=== PATIENT | female | born 1940 | race African-American/Black ===

== ENCOUNTER 2022-01-15 03:14 | Inpatient (IN) | payer MEDICARE, MEDICAID ==
[~2022-01-15] VITALS: Ht 170.2 cm; Wt 95.7 kg
[~2022-01-15 03:14] MED LIST: ACET-3161 GT; ACET650S25 PO; AMLO10TA80 PO; APIX5TAB MT; ATOR-2 PO; BISA10SU66 RC; CELE200C PO; CLON0.1T14 PO; DOCU-150 PO; DUONEB3 ML INH; FAMO-135 PO; GABA-532 MT; LAM25 PO; LEVE1000 PO; MAGN800O PO; METO-539 PO; MULT-1146 PO; TIOT18CA3 INH; TRAV5DRO4 OP
[2022-01-15] MEDS ORDERED: SODIUM CHLORIDE 0.9% 1,000 ML IV ONE (03:30)
[2022-01-15 04:04] LABS: BASOPHILS % 0.5 % (0.0-2.0); EOSINOPHILS % 0.2 % (0.0-5.0); HEMATOCRIT. 33.7 % (36.0-48.0); HEMOGLOBIN. 11.4 g/dL (12.0-16.0); LYMPHOCYTES % 20.3 % (20.0-50.0); MEAN CORPUSCULAR HEMOGLOBIN 30.2 pg (28.0-32.0); MEAN CORPUSCULAR VOLUME 89.2 fL (81.0-99.0); MEAN PLATELET VOLUME 7.8 fl (7.4-10.4); MONOCYTES % 7.6 % (2.0-8.0); NEUTROPHILS % 71.4 % (40.0-76.0); PLATELET 260 x1000/uL (130-400); RED BLOOD CELL COUNT 3.78 mill/uL (4.2-5.4); RED CELL DISTRIBUTION WIDTH 13.8 % (11.6-14.6)
[2022-01-15 04:10] LABS: CHLORIDE 108 mEq/L (98-107)
[2022-01-15 04:26] LABS: ETHANOL BLOOD < 10 mg/dL
[2022-01-15 09:40] VITALS: BP 97/67
[2022-01-15] MEDS ORDERED: ONDANSETRON HCL 4MG/2ML INJ IV PRN (10:00)
[2022-01-15] MEDS ORDERED: MAGNESIUM/ALUMINUM HYDROXIDE/SIMETHICONE 30ML UDC PO PRN (10:00)
[2022-01-15] MEDS ORDERED: CLONIDINE 0.1MG TABLET PO PRN (10:00)
[2022-01-15] MEDS ORDERED: DOCUSATE SODIUM 100MG CAPSULE PO PRN (10:00)
[2022-01-15] MEDS ORDERED: GUAIFENESIN 200MG/10ML SUGAR FREE UDC PO PRN (10:00)
[2022-01-15] MEDS ORDERED: IPRATROPIUM/ALBUTEROL 0.5-3(2.5)MG/3ML NEB HHN PRN (10:00)
[2022-01-15] MEDS ORDERED: LORAZEPAM 2MG/ML CPJ IV PRN (10:00)
[2022-01-15] MEDS ORDERED: DIPHENHYDRAMINE 50MG/ML VIAL IV PRN (10:00)
[2022-01-15 10:20] VITALS: BP 97/67
[2022-01-15 12:00] VITALS: BP 98/64
[2022-01-15] MEDS: ENOXAPARIN 40MG/0.4ML SYR SUBCUT SCH (13:45)
[2022-01-15] MEDS: SODIUM CHLORIDE 0.9% INJ 3ML FLUSH IVF SCH ×2 (13:50→21:22)
[2022-01-15 16:00] VITALS: BP 131/74
[2022-01-15] MEDS ORDERED: NALOXONE HCL 0.4MG/ML VIAL IV PRN (17:00)
[2022-01-15] MEDS: DEXT 5%/0.45% NACL 500ML 1,000 ML IV SCH (18:59)
[2022-01-15 20:00] VITALS: BP 94/68
[2022-01-16] VITALS: BP 107/52
[2022-01-16 04:00] VITALS: BP 109/71
[2022-01-16] MEDS: SODIUM CHLORIDE 0.9% INJ 3ML FLUSH IVF SCH ×3 (05:39→22:00)
[2022-01-16 07:22] LABS: BASOPHILS % 0.5 % (0.0-2.0); EOSINOPHILS % 4.7 % (0.0-5.0); HEMATOCRIT. 32.2 % (36.0-48.0); HEMOGLOBIN. 10.9 g/dL (12.0-16.0); LYMPHOCYTES % 23.9 % (20.0-50.0); MEAN CORPUSCULAR HEMOGLOBIN 29.7 pg (28.0-32.0); MEAN CORPUSCULAR VOLUME 88.1 fL (81.0-99.0); MEAN PLATELET VOLUME 8.3 fl (7.4-10.4); MONOCYTES % 4.6 % (2.0-8.0); NEUTROPHILS % 66.3 % (40.0-76.0); PLATELET 272 x1000/uL (130-400); RED BLOOD CELL COUNT 3.66 mill/uL (4.2-5.4)
[2022-01-16 07:40] LABS: CHLORIDE 112 mEq/L (98-107)
[2022-01-16 08:00] VITALS: BP 109/44
[2022-01-16] MEDS: DEXT 5%/0.45% NACL 500ML 1,000 ML IV SCH ×2 (08:05→20:51)
[2022-01-16] MEDS ORDERED: POTASSIUM CHLORIDE 20MEQ TABLET SR PO NR (08:45)
[2022-01-16] MEDS: ENOXAPARIN 40MG/0.4ML SYR SUBCUT SCH (09:40)
[2022-01-16 09:48] LABS: T4 FREE 1.63 ng/dL (0.76-1.46)
[2022-01-16 12:00] VITALS: BP 111/69
[2022-01-16] MEDS ORDERED: DIGOXIN 500MCG/2ML AMP IV NR (15:00)
[2022-01-16 16:00] VITALS: BP 108/50
[2022-01-16 20:00] VITALS: BP 100/71
[2022-01-17] VITALS: BP 137/77
[2022-01-17 01:37] LABS: CREATINE KINASE 36 IU/L (26-192); CREATINE KINASE MB FRACTION < 1.0 ng/mL (0.5-3.6)
[2022-01-17 04:00] VITALS: BP 137/77
[2022-01-17] MEDS: SODIUM CHLORIDE 0.9% INJ 3ML FLUSH IVF SCH ×3 (05:55→21:45)
[2022-01-17 08:00] VITALS: BP 143/89
[2022-01-17 08:37] LABS: CREATINE KINASE MB FRACTION 1.1 ng/mL (0.5-3.6)
[2022-01-17] MEDS: HYDROCODONE/ACETAMINOPHEN 5/325MG TABLET PO PRN ×2 (11:18→23:48)
[2022-01-17 12:00] VITALS: BP 120/71
[2022-01-17] MEDS: ACETAMINOPHEN 325MG TABLET PO PRN (12:04)
[2022-01-17] MEDS ORDERED: DIGOXIN 500MCG/2ML AMP IV NR (13:00)
[2022-01-17] MEDS: APIXABAN 5 MG TABLET PO SCH (17:19)
[2022-01-17 20:00] VITALS: BP 141/87
[2022-01-17] MEDS: AMIODARONE HCL 200 MG TABLET PO SCH (21:44)
[2022-01-17] MEDS: METOPROLOL TARTRATE 25MG TABLET PO SCH (21:44)
[2022-01-18] VITALS: BP 160/93
[2022-01-18 04:00] VITALS: BP 125/65
[2022-01-18] MEDS: SODIUM CHLORIDE 0.9% INJ 3ML FLUSH IVF SCH ×3 (05:47→21:50)
[2022-01-18 08:00] VITALS: BP 136/78
[2022-01-18] MEDS: APIXABAN 5 MG TABLET PO SCH ×2 (09:13→17:27)
[2022-01-18] MEDS: AMIODARONE HCL 200 MG TABLET PO SCH ×2 (09:15→21:49)
[2022-01-18] MEDS: METOPROLOL TARTRATE 25MG TABLET PO SCH ×2 (09:15→21:50)
[2022-01-18 12:00] VITALS: BP 94/56
[2022-01-18] MEDS: ACETAMINOPHEN 325MG TABLET PO PRN ×2 (12:15→21:50)
[2022-01-18 16:00] VITALS: BP 148/78
[2022-01-18 20:00] VITALS: BP 139/59
[2022-01-19] VITALS: BP 153/73
[2022-01-19 04:00] VITALS: BP 155/86
[2022-01-19] MEDS: SODIUM CHLORIDE 0.9% INJ 3ML FLUSH IVF SCH (05:44)
[2022-01-19] MEDS: ACETAMINOPHEN 325MG TABLET PO PRN (05:44)
[2022-01-19 08:00] VITALS: BP 155/84
[2022-01-19] MEDS: AMIODARONE HCL 200 MG TABLET PO SCH ×2 (10:03→20:40)
[2022-01-19] MEDS: APIXABAN 5 MG TABLET PO SCH ×2 (10:03→17:33)
[2022-01-19] MEDS: METOPROLOL TARTRATE 25MG TABLET PO SCH ×2 (10:03→20:40)
[2022-01-19 12:00] VITALS: BP 130/77
[2022-01-19 14:46] LABS: CHLORIDE 102 mEq/L (98-107)
[2022-01-19 16:00] VITALS: BP 162/93
[2022-01-19 20:00] VITALS: BP 139/76
[2022-01-20] VITALS (8 sets, daily range): BP systolic 111–162; BP diastolic 60–91
[2022-01-20] MEDS: HYDRALAZINE 20MG/ML VIAL IV PRN (04:44)
[2022-01-20] MEDS: SODIUM CHLORIDE 0.9% INJ 3ML FLUSH IVF SCH ×3 (06:21→21:12)
[2022-01-20] MEDS: AMIODARONE HCL 200 MG TABLET PO SCH ×2 (09:39→21:00)
[2022-01-20] MEDS: METOPROLOL TARTRATE 25MG TABLET PO SCH ×2 (09:39→21:00)
[2022-01-20] MEDS: APIXABAN 5 MG TABLET PO SCH ×2 (09:39→17:50)
[2022-01-20] MEDS: HYDROCHLOROTHIAZIDE 25MG TABLET PO SCH (09:40)
[2022-01-20] MEDS ORDERED: LEVETIRACETAM 500 MG in SODIUM CHLORIDE 0.9% 100 ML IV SCH (12:30)
[2022-01-20] MEDS: LORAZEPAM 2MG/ML CPJ IV PRN (12:57)
[2022-01-20] MEDS: LEVETIRACETAM 500MG PREMIX 100 ML IV SCH ×2 (15:27→21:10)
[2022-01-21] VITALS (9 sets, daily range): BP systolic 101–147; BP diastolic 31–73
[2022-01-21] MEDS: SODIUM CHLORIDE 0.9% INJ 3ML FLUSH IVF SCH ×3 (05:07→21:09)
[2022-01-21] MEDS: LEVETIRACETAM 500MG PREMIX 100 ML IV SCH ×2 (08:45→21:09)
[2022-01-21] MEDS: METOPROLOL TARTRATE 25MG TABLET PO SCH ×3 (08:48→21:00)
[2022-01-21] MEDS: APIXABAN 5 MG TABLET PO SCH ×3 (08:48→17:00)
[2022-01-21] MEDS: AMIODARONE HCL 200 MG TABLET PO SCH ×3 (08:48→21:00)
[2022-01-21] MEDS: HYDROCHLOROTHIAZIDE 25MG TABLET PO SCH ×2 (08:49→08:59)
[2022-01-21] MEDS: HYDRALAZINE 20MG/ML VIAL IV PRN (19:07)
[2022-01-22] VITALS (12 sets, daily range): BP systolic 95–161; BP diastolic 35–97
[2022-01-22] MEDS: SODIUM CHLORIDE 0.9% INJ 3ML FLUSH IVF SCH ×3 (05:27→21:32)
[2022-01-22] MEDS: AMIODARONE HCL 200 MG TABLET PO SCH ×2 (09:00→21:31)
[2022-01-22] MEDS: METOPROLOL TARTRATE 25MG TABLET PO SCH ×2 (09:00→21:31)
[2022-01-22] MEDS: HYDROCHLOROTHIAZIDE 25MG TABLET PO SCH (09:00)
[2022-01-22] MEDS: APIXABAN 5 MG TABLET PO SCH ×2 (09:00→17:00)
[2022-01-22] MEDS: LEVETIRACETAM 500MG PREMIX 100 ML IV SCH ×2 (09:27→21:30)
[2022-01-22 15:46] LABS: BASOPHILS % 0.1 % (0.0-2.0); HEMATOCRIT. 36.8 % (36.0-48.0); HEMOGLOBIN. 12.4 g/dL (12.0-16.0); MEAN CORPUSCULAR HEMOGLOBIN 29.4 pg (28.0-32.0); MEAN CORPUSCULAR VOLUME 87.2 fL (81.0-99.0); MEAN PLATELET VOLUME 7.1 fl (7.4-10.4); MONOCYTES % 14.8 % (2.0-8.0); NEUTROPHILS % 69.1 % (40.0-76.0); PLATELET 346 x1000/uL (130-400); RED BLOOD CELL COUNT 4.22 mill/uL (4.2-5.4); RED CELL DISTRIBUTION WIDTH 13.5 % (11.6-14.6)
[2022-01-22] MEDS: LORAZEPAM 2MG/ML CPJ IV PRN (19:47)
[2022-01-23] VITALS (12 sets, daily range): BP systolic 95–132; BP diastolic 48–98
[2022-01-23] MEDS: SODIUM CHLORIDE 0.9% INJ 3ML FLUSH IVF SCH ×3 (06:34→21:01)
[2022-01-23] MEDS: APIXABAN 5 MG TABLET PO SCH ×2 (09:00→17:36)
[2022-01-23] MEDS: LEVETIRACETAM 500MG PREMIX 100 ML IV SCH (09:12)
[2022-01-23] MEDS: LEVETIRACETAM 500MG/5ML CUP PO SCH ×2 (09:15→20:58)
[2022-01-23] MEDS: AMIODARONE HCL 200 MG TABLET PO SCH ×2 (09:17→20:58)
[2022-01-23] MEDS: METOPROLOL TARTRATE 25MG TABLET PO SCH ×2 (09:18→20:58)
[2022-01-23] MEDS: HYDROCHLOROTHIAZIDE 25MG TABLET PO SCH (09:18)
[2022-01-24] VITALS (12 sets, daily range): BP systolic 88–138; BP diastolic 46–73
[2022-01-24] MEDS ORDERED: SODIUM CHLORIDE 0.9% 500 ML IV ONE (09:45)
[2022-01-24] MEDS: APIXABAN 5 MG TABLET PO SCH ×2 (10:38→18:25)
[2022-01-24] MEDS: LEVETIRACETAM 500MG/5ML CUP PO SCH ×2 (10:38→21:37)
[2022-01-24] MEDS: AMIODARONE HCL 200 MG TABLET PO SCH ×2 (10:38→21:41)
[2022-01-24] MEDS: IPRATROPIUM/ALBUTEROL 0.5-3(2.5)MG/3ML NEB HHN SCH ×2 (17:01→21:35)
[2022-01-24] MEDS: ACETYLCYSTEINE 100MG/ML 10% VIAL 4ML INH SCH (17:01)
[2022-01-24] MEDS: SODIUM CHLORIDE 0.9% INJ 3ML FLUSH IVF SCH ×2 (18:25→21:36)
[2022-01-25] VITALS (12 sets, daily range): BP systolic 86–114; BP diastolic 35–79
[2022-01-25] MEDS: ACETYLCYSTEINE 100MG/ML 10% VIAL 4ML INH SCH ×2 (00:57→13:00)
[2022-01-25] MEDS: IPRATROPIUM/ALBUTEROL 0.5-3(2.5)MG/3ML NEB HHN SCH ×6 (00:57→20:00)
[2022-01-25 06:30] LABS: INR 1.2; PROTHROMBIN TIME 12.4 sec (9.6-11.0)
[2022-01-25] MEDS: SODIUM CHLORIDE 0.9% INJ 3ML FLUSH IVF SCH ×3 (06:32→22:52)
[2022-01-25 06:46] LABS: EOSINOPHILS % 0.5 % (0.0-5.0); HEMATOCRIT. 37.6 % (36.0-48.0); HEMOGLOBIN. 12.6 g/dL (12.0-16.0); LYMPHOCYTES % 15.3 % (20.0-50.0); MEAN CORPUSCULAR HEMOGLOBIN 29.3 pg (28.0-32.0); MEAN CORPUSCULAR VOLUME 87.5 fL (81.0-99.0); MEAN PLATELET VOLUME 7.5 fl (7.4-10.4); MONOCYTES % 7.2 % (2.0-8.0); PLATELET 306 x1000/uL (130-400); RED BLOOD CELL COUNT 4.29 mill/uL (4.2-5.4); RED CELL DISTRIBUTION WIDTH 13.8 % (11.6-14.6)
[2022-01-25 07:44] LABS: CHLORIDE 104 mEq/L (98-107)
[2022-01-25] MEDS: AMIODARONE HCL 200 MG TABLET PO SCH ×2 (08:04→20:28)
[2022-01-25] MEDS: LEVETIRACETAM 500MG/5ML CUP PO SCH ×2 (08:04→20:27)
[2022-01-25] MEDS: APIXABAN 5 MG TABLET PO SCH (08:04)
[2022-01-25] MEDS ORDERED: POTASSIUM CHLORIDE 20MEQ/PACKET PO NR ×2 (10:00→17:00)
[2022-01-25 14:11] LABS: BG BASE EXCESS 11.8 mmol/L (-2.0-2.0); BG CARBOXYHEMOGLOBIN 0.3 % (0.5-1.5); BG DEOXYHEMOGLOBIN 2.3 % (0.0-5.0); BG FRACTION INSPIRED OXYGEN 60; BG HCO3 ACT 35.5 mmol/L (22.0-26.0); BG METHEMOGLOBIN 0.3 % (0.0-1.5); BG OXYGEN SATURATION 97.7 % (92.0-98.5); BG OXYHEMOGLOBIN 97.1 % (94.0-97.0); BG PCO2 42.6 mmHg (35.0-45.0); BG PH 7.539 (7.350-7.450); BG PO2 100.8 mmHg (75.0-100.0); BG SAMPLE SITE LEFT RADIAL; BG VENT MODE MASK - SIMPLE
[2022-01-26] VITALS (15 sets, daily range): BP systolic 81–128; BP diastolic 35–70
[2022-01-26] MEDS: IPRATROPIUM/ALBUTEROL 0.5-3(2.5)MG/3ML NEB HHN SCH ×6 (00:29→21:19)
[2022-01-26] MEDS: ACETYLCYSTEINE 100MG/ML 10% VIAL 4ML INH SCH ×4 (00:29→16:24)
[2022-01-26 05:24] LABS: HEMATOCRIT. 33.7 % (36.0-48.0); HEMOGLOBIN. 11.2 g/dL (12.0-16.0); MEAN CORPUSCULAR VOLUME 87.3 fL (81.0-99.0); PLATELET 348 x1000/uL (130-400); RED BLOOD CELL COUNT 3.86 mill/uL (4.2-5.4); RED CELL DISTRIBUTION WIDTH 14.3 % (11.6-14.6)
[2022-01-26] MEDS: SODIUM CHLORIDE 0.9% INJ 3ML FLUSH IVF SCH ×3 (05:42→21:35)
[2022-01-26 06:26] LABS: CHLORIDE 111 mEq/L (98-107)
[2022-01-26] MEDS: AMIODARONE HCL 200 MG TABLET PO SCH ×2 (08:19→21:34)
[2022-01-26] MEDS: SODIUM CHLORIDE 0.9% 1,000 ML IV SCH ×2 (08:31→21:35)
[2022-01-26] MEDS: LEVETIRACETAM 500MG/5ML CUP PO SCH ×2 (08:31→21:34)
[2022-01-26] MEDS: LEVOFLOXACIN 500MG TABLET PO SCH (08:31)
[2022-01-26] MEDS ORDERED: POTASSIUM CHLORIDE 20MEQ TABLET SR PO NR (09:00)
[2022-01-26 09:14] LABS: PLATELET ESTIMATE NORMAL
[2022-01-26] MEDS: METRONIDAZOLE 500MG TABLET PO SCH ×2 (14:13→21:41)
[2022-01-26 18:38] LABS: BG BASE EXCESS 9.3 mmol/L (-2.0-2.0); BG CARBOXYHEMOGLOBIN 0.3 % (0.5-1.5); BG DEOXYHEMOGLOBIN 1.3 % (0.0-5.0); BG FRACTION INSPIRED OXYGEN 50; BG HCO3 ACT 33.3 mmol/L (22.0-26.0); BG METHEMOGLOBIN 0.3 % (0.0-1.5); BG OXYGEN SATURATION 98.7 % (92.0-98.5); BG OXYHEMOGLOBIN 98.1 % (94.0-97.0); BG PH 7.507 (7.350-7.450); BG SAMPLE SITE LEFT RADIAL; BG TOTAL HEMOGLOBIN 11.2 g/dL (12.0-18.0); BG VENT MODE MASK - VENTI
[2022-01-27] VITALS (12 sets, daily range): BP systolic 97–146; BP diastolic 49–86
[2022-01-27] MEDS: ACETYLCYSTEINE 100MG/ML 10% VIAL 4ML INH SCH ×4 (01:34→23:58)
[2022-01-27] MEDS: IPRATROPIUM/ALBUTEROL 0.5-3(2.5)MG/3ML NEB HHN SCH ×7 (01:34→23:58)
[2022-01-27] MEDS: METRONIDAZOLE 500MG TABLET PO SCH ×3 (05:23→21:53)
[2022-01-27] MEDS: SODIUM CHLORIDE 0.9% INJ 3ML FLUSH IVF SCH ×3 (05:24→22:00)
[2022-01-27 06:20] LABS: BASOPHILS % 0.1 % (0.0-2.0); EOSINOPHILS % 1.3 % (0.0-5.0); HEMATOCRIT. 30.7 % (36.0-48.0); HEMOGLOBIN. 10.4 g/dL (12.0-16.0); LYMPHOCYTES % 10.1 % (20.0-50.0); MEAN CORPUSCULAR HEMOGLOBIN 29.5 pg (28.0-32.0); MEAN CORPUSCULAR VOLUME 87.7 fL (81.0-99.0); MEAN PLATELET VOLUME 7.6 fl (7.4-10.4); MONOCYTES % 3.7 % (2.0-8.0); NEUTROPHILS % 84.8 % (40.0-76.0); PLATELET 303 x1000/uL (130-400); RED BLOOD CELL COUNT 3.51 mill/uL (4.2-5.4); RED CELL DISTRIBUTION WIDTH 14.3 % (11.6-14.6)
[2022-01-27 06:23] LABS: CHLORIDE 115 mEq/L (98-107)
[2022-01-27] MEDS: AMIODARONE HCL 200 MG TABLET PO SCH ×2 (08:21→21:54)
[2022-01-27] MEDS: LEVETIRACETAM 500MG/5ML CUP PO SCH ×2 (08:21→21:54)
[2022-01-27] MEDS: LEVOFLOXACIN 500MG TABLET PO SCH (08:21)
[2022-01-27] MEDS: LORAZEPAM 2MG/ML CPJ IV PRN ×4 (09:33→21:54)
[2022-01-27] MEDS ORDERED: POTASSIUM CHLORIDE 20MEQ/PACKET NG SCH (10:15)
[2022-01-27] MEDS: SODIUM CHLORIDE 0.9% 1,000 ML IV SCH (11:08)
[2022-01-27] MEDS: APIXABAN 5 MG TABLET PO SCH (16:50)
[2022-01-28] VITALS (12 sets, daily range): BP systolic 98–152; BP diastolic 15–77
[2022-01-28] MEDS: SODIUM CHLORIDE 0.9% 1,000 ML IV SCH ×2 (00:53→14:47)
[2022-01-28] MEDS: IPRATROPIUM/ALBUTEROL 0.5-3(2.5)MG/3ML NEB HHN SCH ×5 (03:49→20:43)
[2022-01-28] MEDS: METRONIDAZOLE 500MG TABLET PO SCH ×3 (05:30→21:46)
[2022-01-28] MEDS: SODIUM CHLORIDE 0.9% INJ 3ML FLUSH IVF SCH ×3 (05:30→22:00)
[2022-01-28 06:03] LABS: CHLORIDE 119 mEq/L (98-107)
[2022-01-28 06:16] LABS: BASOPHILS % 0.1 % (0.0-2.0); EOSINOPHILS % 2.1 % (0.0-5.0); HEMATOCRIT. 34.2 % (36.0-48.0); HEMOGLOBIN. 11.1 g/dL (12.0-16.0); LYMPHOCYTES % 17.4 % (20.0-50.0); MEAN CORPUSCULAR HEMOGLOBIN 28.8 pg (28.0-32.0); MEAN CORPUSCULAR VOLUME 88.7 fL (81.0-99.0); MEAN PLATELET VOLUME 7.4 fl (7.4-10.4); MONOCYTES % 4.8 % (2.0-8.0); NEUTROPHILS % 75.6 % (40.0-76.0); PLATELET 301 x1000/uL (130-400); RED BLOOD CELL COUNT 3.85 mill/uL (4.2-5.4); RED CELL DISTRIBUTION WIDTH 14.6 % (11.6-14.6)
[2022-01-28] MEDS: LEVETIRACETAM 500MG/5ML CUP PO SCH ×2 (08:46→21:22)
[2022-01-28] MEDS: APIXABAN 5 MG TABLET PO SCH ×2 (08:46→17:47)
[2022-01-28] MEDS: LEVOFLOXACIN 500MG TABLET PO SCH (08:46)
[2022-01-28] MEDS: AMIODARONE HCL 200 MG TABLET PO SCH ×2 (08:50→21:24)
[2022-01-28] MEDS: ACETYLCYSTEINE 100MG/ML 10% VIAL 4ML INH SCH (16:57)
[2022-01-29] VITALS (12 sets, daily range): BP systolic 101–152; BP diastolic 36–93
[2022-01-29] MEDS: ACETYLCYSTEINE 100MG/ML 10% VIAL 4ML INH SCH ×3 (00:36→14:00)
[2022-01-29] MEDS: IPRATROPIUM/ALBUTEROL 0.5-3(2.5)MG/3ML NEB HHN SCH ×6 (00:36→20:25)
[2022-01-29] MEDS: METRONIDAZOLE 500MG TABLET PO SCH ×3 (05:27→20:38)
[2022-01-29] MEDS: SODIUM CHLORIDE 0.9% INJ 3ML FLUSH IVF SCH ×3 (05:28→20:38)
[2022-01-29] MEDS: SODIUM CHLORIDE 0.9% 1,000 ML IV SCH ×2 (05:29→17:04)
[2022-01-29 05:52] LABS: BASOPHILS % 0.2 % (0.0-2.0); EOSINOPHILS % 1.3 % (0.0-5.0); HEMATOCRIT. 31.5 % (36.0-48.0); HEMOGLOBIN. 10.6 g/dL (12.0-16.0); LYMPHOCYTES % 13.1 % (20.0-50.0); MEAN CORPUSCULAR HEMOGLOBIN 29.6 pg (28.0-32.0); MEAN CORPUSCULAR VOLUME 88.2 fL (81.0-99.0); MEAN PLATELET VOLUME 7.7 fl (7.4-10.4); MONOCYTES % 5.1 % (2.0-8.0); NEUTROPHILS % 80.3 % (40.0-76.0); PLATELET 297 x1000/uL (130-400); RED BLOOD CELL COUNT 3.57 mill/uL (4.2-5.4); RED CELL DISTRIBUTION WIDTH 14.8 % (11.6-14.6)
[2022-01-29 05:59] LABS: CHLORIDE 122 mEq/L (98-107)
[2022-01-29] MEDS: AMIODARONE HCL 200 MG TABLET PO SCH ×2 (09:51→20:38)
[2022-01-29] MEDS: APIXABAN 5 MG TABLET PO SCH ×2 (09:51→17:03)
[2022-01-29] MEDS: LEVETIRACETAM 500MG/5ML CUP PO SCH ×2 (09:51→20:37)
[2022-01-29] MEDS: LEVOFLOXACIN 500MG TABLET PO SCH (09:51)
[2022-01-30] VITALS (14 sets, daily range): BP systolic 97–164; BP diastolic 46–107
[2022-01-30] MEDS: ACETYLCYSTEINE 100MG/ML 10% VIAL 4ML INH SCH (00:38)
[2022-01-30] MEDS: IPRATROPIUM/ALBUTEROL 0.5-3(2.5)MG/3ML NEB HHN SCH ×6 (00:39→20:45)
[2022-01-30] MEDS: SODIUM CHLORIDE 0.9% 1,000 ML IV SCH ×2 (03:43→17:31)
[2022-01-30] MEDS: SODIUM CHLORIDE 0.9% INJ 3ML FLUSH IVF SCH ×2 (05:13→16:10)
[2022-01-30] MEDS: METRONIDAZOLE 500MG TABLET PO SCH ×3 (05:13→21:16)
[2022-01-30 09:50] LABS: BG BASE EXCESS 1.7 mmol/L (-2.0-2.0); BG CARBOXYHEMOGLOBIN 0.1 % (0.5-1.5); BG DEOXYHEMOGLOBIN 3.6 % (0.0-5.0); BG FRACTION INSPIRED OXYGEN 28; BG HCO3 ACT 24.9 mmol/L (22.0-26.0); BG METHEMOGLOBIN 0.2 % (0.0-1.5); BG OXYGEN SATURATION 96.4 % (92.0-98.5); BG OXYHEMOGLOBIN 96.1 % (94.0-97.0); BG PCO2 34.2 mmHg (35.0-45.0); BG PO2 78.6 mmHg (75.0-100.0); BG TOTAL HEMOGLOBIN 11.7 g/dL (12.0-18.0); BG VENT MODE NASAL CANNULA
[2022-01-30] MEDS: LEVOFLOXACIN 500MG TABLET PO SCH (09:59)
[2022-01-30] MEDS: LEVETIRACETAM 500MG/5ML CUP PO SCH ×2 (09:59→21:16)
[2022-01-30] MEDS: AMIODARONE HCL 200 MG TABLET PO SCH ×2 (09:59→21:17)
[2022-01-30] MEDS: APIXABAN 5 MG TABLET PO SCH ×2 (09:59→16:13)
[2022-01-31] VITALS (12 sets, daily range): BP systolic 104–147; BP diastolic 37–104
[2022-01-31] MEDS: IPRATROPIUM/ALBUTEROL 0.5-3(2.5)MG/3ML NEB HHN SCH ×6 (01:31→21:17)
[2022-01-31] MEDS: SODIUM CHLORIDE 0.9% 1,000 ML IV SCH ×2 (05:26→05:29)
[2022-01-31] MEDS: METRONIDAZOLE 500MG TABLET PO SCH ×2 (05:29→15:16)
[2022-01-31] MEDS: SODIUM CHLORIDE 0.9% INJ 3ML FLUSH IVF SCH ×3 (05:29→20:24)
[2022-01-31 06:37] LABS: BASOPHILS % 0.5 % (0.0-2.0); EOSINOPHILS % 2.8 % (0.0-5.0); HEMATOCRIT. 30.1 % (36.0-48.0); HEMOGLOBIN. 9.8 g/dL (12.0-16.0); LYMPHOCYTES % 18.5 % (20.0-50.0); MEAN CORPUSCULAR HEMOGLOBIN 29.4 pg (28.0-32.0); MEAN CORPUSCULAR VOLUME 90.4 fL (81.0-99.0); MEAN PLATELET VOLUME 7.8 fl (7.4-10.4); MONOCYTES % 5.3 % (2.0-8.0); NEUTROPHILS % 72.9 % (40.0-76.0); PLATELET 217 x1000/uL (130-400); RED BLOOD CELL COUNT 3.33 mill/uL (4.2-5.4); RED CELL DISTRIBUTION WIDTH 14.9 % (11.6-14.6)
[2022-01-31] MEDS: APIXABAN 5 MG TABLET PO SCH ×2 (09:49→17:20)
[2022-01-31] MEDS: LEVOFLOXACIN 500MG TABLET PO SCH (09:49)
[2022-01-31] MEDS: AMIODARONE HCL 200 MG TABLET PO SCH ×2 (09:49→20:23)
[2022-01-31] MEDS: LEVETIRACETAM 500MG/5ML CUP PO SCH ×2 (09:50→20:23)
[2022-01-31 10:14] LABS: CHLORIDE 122 mEq/L (98-107)
[2022-01-31 11:12] LABS: BG BASE EXCESS 1.6 mmol/L (-2.0-2.0); BG CARBOXYHEMOGLOBIN 0.3 % (0.5-1.5); BG DEOXYHEMOGLOBIN 3.4 % (0.0-5.0); BG FRACTION INSPIRED OXYGEN 21; BG HCO3 ACT 24.3 mmol/L (22.0-26.0); BG METHEMOGLOBIN 0.2 % (0.0-1.5); BG OXYGEN SATURATION 96.6 % (92.0-98.5); BG OXYHEMOGLOBIN 96.1 % (94.0-97.0); BG PCO2 31.8 mmHg (35.0-45.0); BG PH 7.501 (7.350-7.450); BG PO2 85.2 mmHg (75.0-100.0); BG SAMPLE SITE LEFT RADIAL; BG TOTAL HEMOGLOBIN 11.6 g/dL (12.0-18.0); BG VENT MODE ROOM AIR
[2022-02-01] VITALS (12 sets, daily range): BP systolic 111–146; BP diastolic 51–88
[2022-02-01] MEDS: IPRATROPIUM/ALBUTEROL 0.5-3(2.5)MG/3ML NEB HHN SCH ×6 (00:42→20:36)
[2022-02-01] MEDS: SODIUM CHLORIDE 0.9% INJ 3ML FLUSH IVF SCH ×3 (05:26→22:11)
[2022-02-01 06:58] LABS: BASOPHILS % 0.3 % (0.0-2.0); EOSINOPHILS % 3.2 % (0.0-5.0); HEMATOCRIT. 30.7 % (36.0-48.0); HEMOGLOBIN. 10.1 g/dL (12.0-16.0); LYMPHOCYTES % 17.1 % (20.0-50.0); MEAN CORPUSCULAR HEMOGLOBIN 29.2 pg (28.0-32.0); MEAN CORPUSCULAR VOLUME 88.5 fL (81.0-99.0); MEAN PLATELET VOLUME 8.2 fl (7.4-10.4); MONOCYTES % 5.8 % (2.0-8.0); NEUTROPHILS % 73.6 % (40.0-76.0); PLATELET 225 x1000/uL (130-400); RED BLOOD CELL COUNT 3.47 mill/uL (4.2-5.4); RED CELL DISTRIBUTION WIDTH 15.1 % (11.6-14.6)
[2022-02-01 07:20] LABS: CHLORIDE 115 mEq/L (98-107)
[2022-02-01] MEDS: LEVETIRACETAM 500MG/5ML CUP PO SCH ×2 (11:08→20:45)
[2022-02-01] MEDS: APIXABAN 5 MG TABLET PO SCH (11:08)
[2022-02-01] MEDS: LEVOFLOXACIN 500MG TABLET PO SCH (11:08)
[2022-02-01] MEDS: AMIODARONE HCL 200 MG TABLET PO SCH ×2 (11:08→20:45)
[2022-02-01] MEDS: SODIUM CHLORIDE 0.9% 1,000 ML IV SCH (11:09)
[2022-02-01] MEDS ORDERED: LACTULOSE 20G/30ML UDC PO NR (17:30)
[2022-02-02] VITALS (12 sets, daily range): BP systolic 110–154; BP diastolic 59–79
[2022-02-02] MEDS: IPRATROPIUM/ALBUTEROL 0.5-3(2.5)MG/3ML NEB HHN SCH ×5 (00:22→17:00)
[2022-02-02] MEDS: SODIUM CHLORIDE 0.9% 1,000 ML IV SCH ×2 (01:00→15:56)
[2022-02-02] MEDS: SODIUM CHLORIDE 0.9% INJ 3ML FLUSH IVF SCH ×2 (05:28→15:57)
[2022-02-02 06:45] LABS: BASOPHILS % 0.4 % (0.0-2.0); HEMATOCRIT. 28.9 % (36.0-48.0); HEMOGLOBIN. 9.6 g/dL (12.0-16.0); LYMPHOCYTES % 21.3 % (20.0-50.0); MEAN CORPUSCULAR HEMOGLOBIN 29.7 pg (28.0-32.0); MEAN PLATELET VOLUME 8.1 fl (7.4-10.4); MONOCYTES % 8.3 % (2.0-8.0); PLATELET 199 x1000/uL (130-400); RED BLOOD CELL COUNT 3.25 mill/uL (4.2-5.4); RED CELL DISTRIBUTION WIDTH 14.7 % (11.6-14.6)
[2022-02-02 06:53] LABS: INR 1.1; PROTHROMBIN TIME 12.2 sec (9.6-11.0)
[2022-02-02 07:40] LABS: CHLORIDE 114 mEq/L (98-107)
[2022-02-02] MEDS: AMIODARONE HCL 200 MG TABLET PO SCH (08:42)
[2022-02-02] MEDS: LEVOFLOXACIN 500MG TABLET PO SCH (08:42)
[2022-02-02] MEDS: LEVETIRACETAM 500MG/5ML CUP PO SCH (08:46)
[2022-02-02] MEDS ORDERED: BISACODYL 10MG SUPP PR NR (20:00)
== END 2022-02-02 20:45 | DRG 40 ==
LOC: ER 03:14 → 7WST 05:23 → ENRESERV 07:32 → 5EST 01-20 17:30
PROVIDERS: ADMIT Internal Medicine; ATTEND Internal Medicine
PROC: 4A10X4Z Monitoring of Central Nervous Electrical Activity, External Approach (ICD-10-PCS; 2022-01-17)
PROC: 02HV33Z Insertion of Infusion Device into Superior Vena Cava, Percutaneous Approach (ICD-10-PCS; 2022-01-20)
PROC: B548ZZA Ultrasonography of Superior Vena Cava, Guidance (ICD-10-PCS; 2022-01-20)
PROC: 0JB70ZZ Excision of Back Subcutaneous Tissue and Fascia, Open Approach (ICD-10-PCS; principal; 2022-01-27)
DX: G40.909 Epilepsy, unspecified, not intractable, without status epilepticus (principal); A41.9 Sepsis, unspecified organism; L89.153 Pressure ulcer of sacral region, stage 3; J69.0 Pneumonitis due to inhalation of food and vomit; J96.01 Acute respiratory failure with hypoxia; I69.354 Hemiplegia and hemiparesis following cerebral infarction affecting left non-dominant side; D68.59 Other primary thrombophilia; E44.1 Mild protein-calorie malnutrition; I50.9 Heart failure, unspecified; I11.0 Hypertensive heart disease with heart failure; E78.00 Pure hypercholesterolemia, unspecified; E66.01 Morbid (severe) obesity due to excess calories; Z20.822 Contact with and (suspected) exposure to COVID-19; R13.12 Dysphagia, oropharyngeal phase; K21.9 Gastro-esophageal reflux disease without esophagitis; E78.5 Hyperlipidemia, unspecified; I48.91 Unspecified atrial fibrillation; J44.9 Chronic obstructive pulmonary disease, unspecified; G93.89 Other specified disorders of brain; D32.0 Benign neoplasm of cerebral meninges; M19.90 Unspecified osteoarthritis, unspecified site; S90.922A Unspecified superficial injury of left foot, initial encounter; S90.921A Unspecified superficial injury of right foot, initial encounter; X58.XXXA Exposure to other specified factors, initial encounter; Y93.89 Activity, other specified; Y92.89 Other specified places as the place of occurrence of the external cause; Y99.8 Other external cause status; Z87.891 Personal history of nicotine dependence; Z79.899 Other long term (current) drug therapy; Z86.718 Personal history of other venous thrombosis and embolism; Z88.5 Allergy status to narcotic agent; Z74.01 Bed confinement status; Z68.33 Body mass index [BMI] 33.0-33.9, adult
CPT/HCPCS: 36415; 36600; 70551; 71045; 74018; 76705; 76937; 80048; 80053; 80061; 80320; 82040; 82140; 82375; 82550; 82553; 82805; 82962; 83036; 83605; 83880; 84134; 84145; 84439; 84443; 84484; 85025; 85379; 87426; 92610; 93005; 93306; 93880; 93923; 93970; 94640; 95816; 99285; C1725; C1769; J0360; J1160; J1650; J1953; J2060; J2405; J7030; J7608; A4315; G0480